=== PATIENT | female | born 1950 | race Caucasian/White ===

== ENCOUNTER 2020-09-22 15:59 | Outpatient (RCR) | payer MEDICARE, SELFPAY | END 2020-09-22 16:01 | disposition other institution (70) | LOC: ANHOT 15:59 | PROVIDERS: PCP Family Medicine | DX: I69.354 Hemiplegia and hemiparesis following cerebral infarction affecting left non-dominant side (principal) | CPT/HCPCS: 99199 ==

== ENCOUNTER 2020-10-25 12:30 | Outpatient (RCR) | payer MEDICARE, OTHER, SELFPAY ==
--- NOTE | 2020-09-26 15:46 | STOPEVAL ---
OUTPATIENT SPEECH THERAPY EVALUATION: Thank you for referring Jasmin Redding to [facility].? The patient is scheduled to be seen for therapy?2x/week for 4 weeks. Please review, sign, date and return this plan of care MYRIAM. I agree with and certify that the following plan of care is medically necessary. Referring Physician Date Attending Provider: James Peters MD *ST Outpatient Evaluation Outpatient Past Medical History Past Medical History Source of Past Medical History Patient,Family/Significant Other Neurological History Hx Cerebrovascular Accident (CVA) Yes: 09-04-20 Cardiovascular History Hx Cardiac Disorders No Significant History Respiratory History Hx Respiratory Disorders No Significant History Musculoskeletal History Hx Musculoskeletal Disorders No Significant History Hematological History Hx Hematological Disorders No Significant History Endocrine History Hx Other Endocrine Disorders Yes: parathyroid removal HEENT History Hx HEENT Disorders No Significant History Integumentary History Hx Skin Disorders No Significant History Reproductive History Hx Reproductive Disorders No Significant History Psychosocial History Hx Psychiatric Disorders No Significant History Pain History History of Any Previous or Ongoing No Significant History Instance of Pain Anesthesia History Hx Anesthesia Reactions No Significant History Evaluation Information Problem Diagnosis CVA with aphasia Onset 09-04-20 Additional Evaluation Detail 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 Subjective Information Pleasant; motivated to improve Query Text:As Reported By Patient/ Family Prior Level of Function Activity Level (Last 3 Months) Occupation retired but substitutes as an aid at school Hand Dominance Right Activity of Daily Living Ability Independent Indoor/Home Mobility Independent Community Mobility Independent Stairs Ability Independent Functional Cognition (Planning, Shopping Independent , Taking Medications) Cooking Yes Cleaning Yes Laundry Yes Shopping Yes Driving Yes Home Setting Home Type House Living Situation With Spouse Support Available Local Family Support Mobility Assistive Devices (Used Last 3 None
--- NOTE | 2020-10-25 15:03 | STOPEVAL ---
Speech Therapy Discharge: Thank you for referring Jasmin Redding to [facility].? The patient has achieved all set goals as described below. No further outpatient is warranted at this time. Please review, sign, date and return this discharge plan MYRIAM. I agree with and certify that the following plan of care is medically necessary. Referring Physician Date Attending Provider: James Peters MD * Outpatient Discharge Evaluation Language Evaluation Auditory Comprehension Response Latency functional Overall Auditory Comprehension Ability functional Additional Auditory Comprehension Improved response time with Comments responses to questions overall ; it was noted that pt hears paragraph level information, she cannot accurately recall numerical information correctly. However, pt can read numbers and recall without any notable deficit. Reading Comprehension Name Recognition Yes Numeral Comprehension (% Accuracy (0-100 100 )) Numeral Comprehension Comments single word recognition: averaged 41.5 common words in 1 minutes. Letter Comprehension (% Accuracy (0-100) 100 ) Single Word Comprehension (% Accuracy (0 100 -100)) Comprehension: 3-4 Words (% Accuracy (0- 100 100)) Comprehension: 5-7 Words (% Accuracy (0- 100 100)) Comprehension: 8-10 Words (% Accuracy (0 100 -100)) Comprehension of Complex Statements (% 100 Accuracy (0-100)) Comprehension of Simple Paragraphs (% 100 Accuracy (0-100)) Comprehension of Moderate Paragraphs (% 100 Accuracy (0-100)) Comprehension of Complex Paragraphs (% 100 Accuracy (0-100)) Comprehension of Functional Reading 90 Materials Response Latency functional Overall Reading Comprehension Ability functional Comments Related to Reading Slight delay in reading speed; Comprehension overall reading comprehension is functional Verbal Expression Confrontational Naming (% Accuracy (0- 100 100)) Confrontational Naming Comments higher level confrontational namin% accuracy now without delay; divergent naming: within functional limits. Connected Speech No Impairments Overall Verbal Expression Ability functional Speech Therapy Teaching Speech Therapy Teaching Teaching Topi
== END 2020-10-26 12:50 | disposition home or self-care (01) ==
LOC: ANHST 12:30
PROVIDERS: PCP Family Medicine; Visit Provider Family Medicine
DX: I69.320 Aphasia following cerebral infarction (principal)
CPT/HCPCS: 92507; 92523

== ENCOUNTER → 2022-02-14 07:52 | Outpatient (CLI) | payer MEDICARE, SELFPAY ==
--- NOTE | ~2022-02-14 | MR_ITS ---
EXAMINATION: MR shoulder RT wo con DATE: 02/14/2022 08:55 INDICATION: Right shoulder pain TECHNIQUE: Magnetic resonance imaging (MRI) of the right shoulder was performed without intravenous c ontrast. Sequences included axial PD-weighted FS FSE, coronal oblique PD-weighted FS FSE, coronal obl ique T2-weighted FS FSE, sagittal PD-weighted FS FSE, and sagittal T1-weighted SE. COMPARISON: None. FINDINGS: Coracoacromial arch: The acromion undersurface is flat in morphology (type I). Small anterior subacromial spur at the acro mial insertion of the normal coracoacromial ligament. Mild acromioclavicular osteoarthritis. Rotator cuff: Mild supraspinatus tendinopathy. Attenuation of the distal supraspinatus tendon with partial-thicknes s articular sided tear involving approximately one third of the tendon thickness which measures appro ximately 10 mm AP along the superior facet footplate and with 1.8 cm medial retraction of the torn ar ticular sided tendon with the tear margin positioned at the level of the apex of the humeral head. Th e infraspinatus, teres minor and subscapularis tendons are normal. Normal rotator cuff muscle bulk an d signal. Biceps tendon, glenoid labrum and glenohumeral cartilage: Long head of the biceps tendon is normal. Mild partial-thickness cartilage loss at the cephalad two t hirds of the glenoid and along the inferomedial aspect of the humeral head. Small tear at the 12:30-1 1:30 position of the superior glenoid labrum. The posterior superior to posterior labrum is diminutiv e likely related to chronic degeneration with small marginal osteophytes along the posterior rim of t he glenoid. Fluid: Increased fluid extending along the long head biceps tendon sheath which is disproportionate to the p hysiologic amount fluid in the glenohumeral joint which be consistent with mild bicipital tenosynovit is. No loose osteochondral bodies. Small amount of fluid in the subacromial/subdeltoid bursa consiste nt with mild bursitis. Bones: Normal marrow signal with no edema, fracture or abnormal marrow replacing process. IMPRESSION: 1. Mild supraspinatus tendinopathy with small mild partial-thickness articular sided tear. 2. Mild glenohumeral osteoarthritis with likely degenerative tearing of the superior to posterior gle noid labrum. 3. Mild bicipital tenosynovitis. 4. Mild subacromial/subdeltoid bursitis. Reviewed, dictated and finalized at location A. IMPRESSION: 1. Mild supraspinatus tendinopathy with small mild partial-thickness articular sided tear. 2. Mild glenohumeral osteoarthritis with likely degenerative tearing of the sup erior to posterior glenoid labrum. 3. Mild bicipital tenosynovitis. 4. Mild subacromial/subdeltoid bursitis.
== END ==
PROVIDERS: PCP Family Medicine; Visit Provider Orthopaedic Surgery
DX: M19.011 Primary osteoarthritis, right shoulder (principal); M70.61 Trochanteric bursitis, right hip
CPT/HCPCS: 73221

== ENCOUNTER 2022-05-16 10:11 | Outpatient (CLI) | payer MEDICARE, SELFPAY ==
--- NOTE | 2022-05-16 11:15 | NEURO_ITS ---
Impression: # Complains of left shoulder movement difficulties. # Normal nerve conduction study. # No Carpal Tunnel Syndrome or ulnar neuropathy. # Normal needle/EMG exam including deltoid, biceps and triceps. # Clinical correlation recommended. Nerve Conduction Studies Anti Sensory Summary Table Stim Site NR Peak (ms) P-T Amp (?V) Site1 Site2 Delta-P (ms) Dist (cm) Mauricio (m/s) Right Median Anti Sensory (2-3nd Digit) Wrist 3.2 55.2 Wrist 2-3nd Digit 3.2 14.0 44 Wrist 3.2 48.1 Wrist 2-3nd Digit 3.2 14.0 44 Right Radial Anti Sensory (Base 1st Digit) Wrist 2.4 23.9 Wrist Base 1st Digit 2.4 0.0 Right Ulnar Anti Sensory (5th Digit) Wrist 2.8 24.4 Wrist 5th Digit 2.8 14.0 50 Motor Summary Table Stim Site NR Onset (ms) O-P Amp (mV) Site1 Site2 Delta-0 (ms) Dist (cm) Mauricio (m/s) Right Median Motor (Abd Poll Brev) Wrist 3.3 5.5 Elbow Wrist 4.4 25.0 57 Elbow 7.7 3.9 Right Ulnar Motor (Abd Dig Minimi) Wrist 2.8 9.3 A Elbow Wrist 4.3 25.0 58 A Elbow 7.1 7.7 F Wave Studies NR F-Lat (ms) L-R F-Lat (ms) Right Median (Mrkrs) (Abd Poll Brev) 27.02 Right Ulnar (Mrkrs) (Abd Dig Min) 26.45 EMG Side Muscle Nerve Root Ins Act Fibs Amp Dur Recrt Comment Right 1stDorInt Ulnar C8-T1 Nml Nml Nml Nml Nml Right Ext Indicis Radial (Post Int) C7-8 Nml Nml Nml Nml Nml Right Ext Digitorum Radial (Post Int) C7-8 Nml Nml Nml Nml Nml Right BrachioRad Radial C5-6 Nml Nml Nml Nml Nml Right PronatorTeres Median C6-7 Nml Nml Nml Nml Nml Right Abd Poll Brev Median C8-T1 Nml Nml Nml Nml Nml Right Biceps Musculocut C5-6 Nml Nml Nml Nml Nml Right Triceps Radial C6-7-8 Nml Nml Nml Nml Nml Right Deltoid Axillary C5-6 Nml Nml Nml Nml Nml Right ABD Dig Min Ulnar C8-T1 Nml Nml Nml Nml Nml MTDD
== END 2022-05-16 10:12 | disposition home or self-care (01) ==
PROVIDERS: PCP Family Medicine; Visit Provider Family Medicine
DX: G56.01 Carpal tunnel syndrome, right upper limb (principal)
CPT/HCPCS: 95886; 95909

== ENCOUNTER 2022-12-10 12:29 | Emergency (ER) | payer MEDICARE, SELFPAY ==
--- NOTE | ~2022-12-10 | XR_ITS ---
XR finger 2nd RT min 2V 12/10/2022 13:04 Indication: Right second finger pain Procedure: 4 views right first finger Comparison: No prior studies Findings: There is polyarticular osteoarthritis. Osteopenia. No acute fracture, subluxation or disloc ation. No foreign bodies. Impression: 1: Mild polyarticular osteoarthritis. Reviewed, dictated and finalized at location B. Impression: 1: Mild polyarticular osteoarthritis.
[2022-12-10 12:54] VITALS: BP 155/81; PULSE 86; RESP 16; TEMP 36.6; O2SAT 99
--- NOTE | 2022-12-10 12:57 | ED.UPPEXIN ---
HPI - Extremity Injury (Upper) General Chief Complaint: Extremity Injury, Upper Stated Complaint: fall Time Seen by Provider: 12/10/22 12:57 Source: patient Mode of arrival: ambulatory Limitations: no limitations History of Present Illness HPI narrative: A 72-year-old female presents with complaint of pain and swelling to right index finger. Patient reports that she was outside in the yd walking her dog and the dog saw a turtle. states she had to pull harder on talk to hold it, foot got caught underneath of her and she fell. Patient states that she somehow been to her finger on the way down. Denies hitting her head. No LOC. reports no other pain. Decreased range of motion to right index finger due to pain but reports Does have baseline decreased range of motion due to a stroke. all systems reviewed and negative except as noted above. Related Data Home Medications Medication Instructions Recorded Confirmed vit C 250 mg-vit E 90 mg-zinc 40 1 tablet PO BID 02/03/21 12/10/22 mg-copper 1 [id number] capsule (PreserVision AREDS-2) cholecalciferol (vitamin D3) 125 125 mcg PO DAILY 08/31/21 12/10/22 mcg (5,000 unit) tablet (Vitamin D3) apixaban 5 mg tablet (Eliquis) 5 mg PO BID 02/05/22 12/10/22 amitriptyline 25 mg tablet 25 mg PO DAILY 08/13/22 12/10/22 Allergies Allergy/AdvReac Type Severity Reaction Status Date / Time codeine AdvReac Intermediate INCREASED Verified 12/10/22 13:14 HEART RATE Review of Systems Review of Systems: CONSTITUTIONAL: Denies fever, chills, or sweats. EYES: Denies visual changes, redness, or discharge. ENT: Denies rhinorrhea, congestion, sore throat, or otalgia. CARDIOVASCULAR: Denies chest pain, palpitations, or edema. RESPIRATORY: Denies cough or dyspnea. GASTROINTESTINAL: Denies abdominal pain, nausea, vomiting, or diarrhea. GENITOURINARY: Denies dysuria or hematuria. SKIN: Denies rash or itching. MUSCULOSKELETAL: Denies back pain, joint pain, or myalgia. Reports pain and swelling to right index finger. NEUROLOGIC: Denies headache, numbness, or weakness. PSYCHIATRIC: Denies anxiety or depression. All other systems reviewed are negative, except as documented in HPI. [facility] Past Medical History Medical History Barretts esophagus Basal cell carcinoma left cheek Colon polyp Esophageal hiatal hernia Hallux valgus Macular degeneration Macular pucker (~2014) Obesity (BMI 30.0-34.9) Osteopenia Osteopenia Overweight (BMI 25.0-29.9) PFO (patent foramen ovale) Postmenopausal Primary hyperparathyroidism Recurrent basal cell carcinoma Unspecified vitamin D deficiency Surgical History Surgical History H/O section History of cataract extraction (~2015) History of hernia repair (~2017) History of parathyroidectomy (~08/29/20) History of parathyroidectomy History of tonsillectomy (~1953) Family History Family History Sibling Family history of mental disorder Family history of dementia, Onset Age: 50 Family history of Alzheimer's disease Father Family history of glaucoma Family history of malignant neoplasm Mother Family history of liver disease Family history of primary malignant neoplasm of liver Other Cerebrovascular accident Family history of kidney disease Social History Social History (Updated 08/13/22 @ 15:19 by Deepti Tejeda MA) Smoking status: Never smoker Alcohol intake: current Drinks per week: 4 Substance use: never Substance use type: does not use Living arrangements: with family Gender identity (if verbalized by the patient): Female Spiritual care concerns: No Comments At time of signature, agree with nursing past medical, surgical, social and family history. There is no relevant family history pertinent to the presenting complaint.
== END 2022-12-10 13:29 | disposition home or self-care (01) ==
PROVIDERS: Emergency Provider Nurse Practitioner Family; PCP Family Medicine
DX: S63.630A Sprain of interphalangeal joint of right index finger, initial encounter (principal); W19.XXXA Unspecified fall, initial encounter; K22.70 Barrett's esophagus without dysplasia; Z85.828 Personal history of other malignant neoplasm of skin; H35.30 Unspecified macular degeneration; M85.80 Other specified disorders of bone density and structure, unspecified site; E55.9 Vitamin D deficiency, unspecified; Z90.89 Acquired absence of other organs
CPT/HCPCS: 73140; 99213; G0463

== ENCOUNTER 2023-01-02 13:44 | Outpatient (CLI) | payer MEDICARE, SELFPAY | END 2023-01-02 13:45 | disposition home or self-care (01) | PROVIDERS: PCP Family Medicine; Visit Provider Family Medicine | DX: I63.9 Cerebral infarction, unspecified (principal); E21.1 Secondary hyperparathyroidism, not elsewhere classified; M25.561 Pain in right knee | CPT/HCPCS: 73562 ==

== ENCOUNTER 2023-02-01 10:59 | Emergency (ER) | payer MEDICARE, SELFPAY ==
--- NOTE | ~2023-02-01 | XR_ITS ---
EXAMINATION: XR ribs RT 2V w CXR 2V DATE: 02/01/2023 13:24 INDICATION: Right rib pain. Fall. TECHNIQUE: Frontal and lateral views of the chest and 2 views on 3 radiographs of the right ribs were obtained. COMPARISON: Right rib radiographs 03/18/2015 FINDINGS: CHEST TWO VIEWS: There is no pneumonia, pleural effusion, or pneumothorax. The heart size is normal. There is a moderate-sized hiatal hernia. There is an electronic implant in left anterior chest wall. RIGHT RIBS: There is no rib fracture. IMPRESSION: 1. No rib fracture. 2. Moderate-sized hiatal hernia. Reviewed, dictated and finalized at location A.
--- NOTE | ~2023-02-01 | CT_ITS ---
EXAMINATION: CT brain wo con DATE: 02/01/2023 12:09 INDICATION: Head injury. TECHNIQUE: Computed tomography (CT) of the head was performed without intravenous contrast. The mA wa s adjusted according to patient size. Iterative reconstruction technique was employed. The dose-lengt h product was 681.00 mGy-cm. COMPARISON: None FINDINGS: There is an old infarct in the left thalamus. There is an old infarct in the left temporal occipital region. There is a small old infarct in right cerebellum. There is an old infarct in right frontal lobe. There is no intracranial hemorrhage, acute infarction, or abnormal intracranial mass le jaime. There is mild ex vacuo dilatation of left lateral ventricle. There is mild mucosal thickening i n the paranasal sinuses. There are likely changes of ocular lens replacement surgeries. The mastoid a ir cells are normal. There is right posterior scalp soft tissue swelling. IMPRESSION: 1. Old infarcts in the brain. Reviewed, dictated and finalized at location A.
--- NOTE | ~2023-02-01 | CT_ITS ---
EXAMINATION: CT cervical spine wo con DATE: 02/01/2023 12:09 INDICATION: Head injury. TECHNIQUE: Computed tomography (CT) of the cervical spine was performed without intravenous contrast. Automated exposure control and iterative reconstruction technique were employed. The dose-length pro duct was 177.60 mGy-cm. COMPARISON: None FINDINGS: There is 2 mm of anterolisthesis of C3 on C4 and C7 on T1. Vertebral body heights are may l. There is mildly decreased disc height at C2-C3 and C3-C4 and severely decreased disc height from C 4-C5 through C6-C7. The following disc levels are specifically discussed: C2-C3: There is mild right uncovertebral joint osteoarthritis. There is mild bilateral facet joint os teoarthritis. There is no neural foraminal stenosis. There is no central canal stenosis. C3-C4: There is severe right and moderate left uncovertebral joint osteoarthritis. There is severe bi lateral facet joint osteoarthritis. There is mild bilateral neural foraminal stenosis. There is mild central canal stenosis. C4-C5: There is severe bilateral uncovertebral joint osteoarthritis. There is moderate right and mild left facet joint osteoarthritis. There is mild bilateral neural foraminal stenosis. There is mild ce ntral canal stenosis. C5-C6: There is severe bilateral uncovertebral joint osteoarthritis. There is mild bilateral facet quinn int osteoarthritis. There is mild bilateral neural foraminal stenosis. There is mild central canal st enosis. C6-C7: There is severe bilateral uncovertebral joint osteoarthritis. There is moderate bilateral face t joint osteoarthritis. There is mild left neural foraminal stenosis. There is mild central canal wilbert nosis. C7-T1: There is no uncovertebral joint osteoarthritis. There is severe bilateral facet joint osteoart hritis. There is mild bilateral neural foraminal stenosis. There is no central canal stenosis. IMPRESSION: 1. No fracture. 2. Severe cervical spondylosis. Reviewed, dictated and finalized at location A.
--- NOTE | ~2023-02-01 | XR_ITS ---
EXAMINATION: XR shoulder RT min 2V DATE: 02/01/2023 13:25 INDICATION: Right shoulder injury. TECHNIQUE: 4 views of right shoulder were obtained. COMPARISON: Right shoulder radiographs 02/05/2022 FINDINGS: Bone alignment is normal. No fracture. There is mild osteoarthritis of glenohumeral joint a nd moderate osteoarthritis of acromioclavicular joint. IMPRESSION: 1. Polyarticular osteoarthritis. Reviewed, dictated and finalized at location A.
[2023-02-01 11:18] VITALS: BP 136/76; PULSE 89; RESP 18; TEMP 36.8; O2SAT 97
--- NOTE | 2023-02-01 13:08 | ED.FALL ---
HPI - Fall General Chief Complaint: Fall Stated Complaint: Fall Time Seen by Provider: 02/01/23 11:30 Source: patient Mode of arrival: ambulatory Limitations: no limitations History of Present Illness HPI Narrative: Patient is a 72-year-old female who presents to the ED with report of a fall. Patient reports she was walking with her on the bike trail today when she thinks her toe got caught on something causing her to fall. She was holding onto her at that time but fell backwards, hitting her posterior head on the ground. She sustained a contusion to her posterior scalp, denied LOC. She denied any prodromal symptoms prior to the fall. Denies any dizziness, lightheadedness, vision changes, nausea, vomiting after the fall. reports patient has fallen 4 times in the last few weeks. Patient has a history of CVA 2.5 years ago and does have some gait instability. 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 Denies any new weakness, numbness. Denies chest pain, shortness of breath. She does complain of pain to her right shoulder and right ribs from a recent fall. She has bruising to her arm. Patient is on Eliquis due to history of blood clots. She has history of CVA and PFO. Related Data Home Medications Medication Instructions Recorded Confirmed vit C 250 mg-vit E 90 mg-zinc 40 1 tablet PO BID 02/03/21 01/07/23 mg-copper 1 [id number] capsule (PreserVision AREDS-2) cholecalciferol (vitamin D3) 125 125 mcg PO DAILY 08/31/21 01/07/23 mcg (5,000 unit) tablet (Vitamin D3) apixaban 5 mg tablet (Eliquis) 5 mg PO BID 02/05/22 01/07/23 amitriptyline 25 mg tablet 25 mg PO DAILY 08/13/22 01/07/23 Allergies Allergy/AdvReac Type Severity Reaction Status Date / Time codeine AdvReac Intermediate INCREASED Verified 01/07/23 09:05 HEART RATE Review of Systems Review of Systems: CONSTITUTIONAL: Denies fever, chills, or sweats. EYES: Denies visual changes. CARDIOVASCULAR: Denies chest pain. RESPIRATORY: Denies dyspnea. GASTROINTESTINAL: Denies abdominal pain, nausea, vomiting. MUSCULOSKELETAL: See HPI. NEUROLOGIC: See HPI. All systems reviewed & are unremarkable except as noted in HPI and below PMFSH Past Medical History Medical History Barretts esophagus Basal cell carcinoma left cheek Colon polyp CVA (cerebral vascular accident) Esophageal hiatal hernia Hallux valgus Macular degeneration Macular pucker (~2014) Obesity (BMI 30.0-34.9) Osteopenia Osteopenia Overweight (BMI 25.0-29.9) PFO (patent foramen ovale) Postmenopausal Primary hyperparathyroidism Recurrent basal cell carcinoma Unspecified vitamin D deficiency Surgical History Surgical History H/O section History of cataract extraction (~2015) History of hernia repair (~2017) History of parathyroidectomy (~08/29/20) History of parathyroidectomy History of tonsillectomy (~1953) Family History Family History Sibling Family history of mental disorder Family history of dementia, Onset Age: 50 Family history of Alzheimer's disease Father Family history of glaucoma Family history of malignant neoplasm Mother Family history of liver disease Family history of primary malignant neoplasm of liver Other Cerebrovascular accident Family history of kidney disease Social History Social History Smoking status: Never smoker Alcohol intake: current Drinks per week: 4 Substance use: never Substance use type: does not use Living arrangements: with family Gender identity (if verbalized by the patient): Female Spiritual care concerns: No Exam Narrative: GENERAL: Well appearing, well-nourished, non-toxic, in no acute distress. HEAD
== END 2023-02-01 14:18 | disposition home or self-care (01) ==
PROVIDERS: Emergency Provider Physician Assistant; PCP Family Medicine
DX: S09.90XA Unspecified injury of head, initial encounter (principal); S46.911A Strain of unspecified muscle, fascia and tendon at shoulder and upper arm level, right arm, initial encounter; H35.30 Unspecified macular degeneration; H35.379 Puckering of macula, unspecified eye; M85.80 Other specified disorders of bone density and structure, unspecified site; E66.3 Overweight; Z68.25 Body mass index [BMI] 25.0-25.9, adult; E21.3 Hyperparathyroidism, unspecified; E55.9 Vitamin D deficiency, unspecified; K22.70 Barrett's esophagus without dysplasia; Q21.12 Patent foramen ovale; Z85.828 Personal history of other malignant neoplasm of skin; Z86.73 Personal history of transient ischemic attack (TIA), and cerebral infarction without residual deficits; Z86.010 Personal history of colon polyps; Z98.49 Cataract extraction status, unspecified eye; E89.2 Postprocedural hypoparathyroidism; Z79.01 Long term (current) use of anticoagulants; M47.812 Spondylosis without myelopathy or radiculopathy, cervical region; K44.9 Diaphragmatic hernia without obstruction or gangrene; M19.011 Primary osteoarthritis, right shoulder; W01.0XXA Fall on same level from slipping, tripping and stumbling without subsequent striking against object, initial encounter
CPT/HCPCS: 70450; 71046; 71100; 72125; 73030; 99284; L0140

== ENCOUNTER 2023-07-03 00:49 | Day surgery (SDC) | payer MEDICARE, SELFPAY ==
[2023-06-26 14:31] VITALS: BMI 27.5
--- NOTE | 2023-07-01 10:15 | SUR.PREOP ---
Patient called regarding upcoming procedure. Reviewed preop instructions, appointment times, and procedure prep.
--- NOTE | 2023-07-02 18:34 | PM.HPGS ---
History of Present Illness History of Present Illness Consent: Risks, benefits, and alternatives have been discussed and questions answered. Patient agrees to proceed with procedure. Chief complaint: other fecal abnormalities Narrative: Jasmin Redding is a 72 year old female referred for colon cancer screening. A Cologuard test was positive. Her last colonoscopy which was 5 years ago revealed 2 polyps, 1 of which was a tubular adenoma. Review of Systems Review of Systems: All systems reviewed & are unremarkable except as noted in HPI and below PMFSH Past Medical History Medical History Barretts esophagus Basal cell carcinoma left cheek Colon polyp CVA (cerebral vascular accident) Esophageal hiatal hernia Hallux valgus Macular degeneration Macular pucker (~2014) Obesity (BMI 30.0-34.9) Osteopenia Osteopenia Overweight (BMI 25.0-29.9) PFO (patent foramen ovale) Postmenopausal Primary hyperparathyroidism Recurrent basal cell carcinoma Unspecified vitamin D deficiency Surgical History Surgical History H/O section History of cataract extraction (~2015) History of hernia repair (~2017) History of parathyroidectomy (~08/29/20) History of parathyroidectomy History of tonsillectomy (~1953) Family History Family History Sibling Family history of mental disorder Family history of dementia, Onset Age: 50 Family history of Alzheimer's disease Father Family history of glaucoma Family history of malignant neoplasm Mother Family history of liver disease Family history of primary malignant neoplasm of liver Other Cerebrovascular accident Family history of kidney disease Social History Social History Smoking status: Never smoker Alcohol intake: current Drinks per week: 4 Substance use: never Substance use type: does not use Lack of Transportation: No Lack of Food: Never True Current Housing: I Have Housing Concerned About Future Housing: No Difficulty Paying Gas/Electric Bills: No Difficulty Paying for Meds: No Currently Unemployed: No Education: High School Diploma/GED Difficulty w/ Childcare or Family Care: No Living arrangements: with family Gender identity (if verbalized by the patient): Female Spiritual care concerns: No Meds Home Medications and Allergies Home Medications Medication Instructions Recorded Confirmed Type vit C 250 mg-vit E 90 mg-zinc 40 1 tablet PO BID 02/03/21 07/03/23 History mg-copper 1 [id number] capsule (PreserVision AREDS-2) cholecalciferol (vitamin D3) 125 125 mcg PO DAILY 08/31/21 07/03/23 History mcg (5,000 unit) tablet (Vitamin D3) apixaban 5 mg tablet (Eliquis) 5 mg PO BID 02/05/22 06/26/23 History atorvastatin 40 mg tablet 40 mg PO DAILY #90 tabs 07/13/22 07/03/23 Rx lisinopril 10 mg tablet 10 mg PO DAILY #90 tabs 05/08/23 07/03/23 Rx amitriptyline 25 mg tablet 12.5 mg PO HS 06/26/23 07/03/23 History Allergies Allergy/AdvReac Type Severity Reaction Status Date / Time alteplase Allergy Severe Swelling Verified 07/03/23 11:51 of Lip/Tongue/Throat codeine Allergy Intermediate INCREASED Verified 07/03/23 11:51 HEART RATE Exam Const: General: alert Orientation/consciousness: patient oriented x3 Resp: Auscultation: clear to auscultation bilaterally Cardio: Rhythm: regular rhythm GI: GI Palp: Yes Soft to palpation and No Tenderness to palpation present (GI) Neuro: General: patient oriented x3 Assessment and Plan Assessment and plan (1) Positive colorectal cancer screening using Cologuard test: Code(s): R19.5 - Other fecal abnormalities Status: Acute Assessment and Plan: Colonoscopy with possible biopsy or polypectomy or cautery or
[2023-07-03 11:55] VITALS: BP 144/73; PULSE 72; RESP 20; TEMP 36; O2SAT 100; BMI 27.3
[2023-07-03] MEDS: LACTATED RINGERS 1,000 ML 150 ML IV CONT (11:57)
--- NOTE | 2023-07-03 12:11 | WPDANESEPPF ---
Anes - Initial Pre Proc Eval Procedure: Operation Date: 07/03/23 12:30 Proposed Procedures p Colonoscopy - Dimas Hernandes MD Date/Time: 07/03/23 12:11 Surgeon: Dimas Hernandes MD Pre Op Diagnosis: other fecal abnormalities Patient Data Age: 72 Gender: F Height: 1.6 m Weight: 69.9 kg Last Vital Signs Temp 96.8 F L 07/03/23 11:55 Pulse 72 07/03/23 11:55 Resp 20 07/03/23 11:55 BP 144/73 H 07/03/23 11:55 Pulse Ox 100 07/03/23 11:55 Allergies Allergy/AdvReac Type Severity Reaction Status Date / Time alteplase Allergy Severe Swelling Verified 07/03/23 11:51 of Lip/Tongue/Throat codeine Allergy Intermediate INCREASED Verified 07/03/23 11:51 HEART RATE Home Medications Medication Instructions Recorded Confirmed Type vit C 250 mg-vit E 90 mg-zinc 40 1 tablet PO BID 02/03/21 07/03/23 History mg-copper 1 [id number] capsule (PreserVision AREDS-2) cholecalciferol (vitamin D3) 125 125 mcg PO DAILY 08/31/21 07/03/23 History mcg (5,000 unit) tablet (Vitamin D3) apixaban 5 mg tablet (Eliquis) 5 mg PO BID 02/05/22 06/26/23 History atorvastatin 40 mg tablet 40 mg PO DAILY #90 tabs 07/13/22 07/03/23 Rx lisinopril 10 mg tablet 10 mg PO DAILY #90 tabs 05/08/23 07/03/23 Rx amitriptyline 25 mg tablet 12.5 mg PO HS 06/26/23 07/03/23 History Patient hx anesthesia problems: none Family hx anesthesia problems: none Results Review: All pre-operative results and documents have been reviewed as part of the pre-operative evaluation. [facility] Past Medical History Medical History Barretts esophagus Basal cell carcinoma left cheek Colon polyp CVA (cerebral vascular accident) Esophageal hiatal hernia Hallux valgus Macular degeneration Macular pucker (~2014) Obesity (BMI 30.0-34.9) Osteopenia Osteopenia Overweight (BMI 25.0-29.9) PFO (patent foramen ovale) Postmenopausal Primary hyperparathyroidism Recurrent basal cell carcinoma Unspecified vitamin D deficiency Surgical History Surgical History H/O section History of cataract extraction (~2015) History of hernia repair (~2017) History of parathyroidectomy (~08/29/20) History of parathyroidectomy History of tonsillectomy (~195) Family History Family History Sibling Family history of mental disorder Family history of dementia, Onset Age: 50 Family history of Alzheimer's disease Father Family history of glaucoma Family history of malignant neoplasm Mother Family history of liver disease Family history of primary malignant neoplasm of liver Other Cerebrovascular accident Family history of kidney disease Social History Social History Smoking status: Never smoker Alcohol intake: current Drinks per week: 4 Substance use: never Substance use type: does not use Lack of Transportation: No Lack of Food: Never True Current Housing: I Have Housing Concerned About Future Housing: No Difficulty Paying Gas/Electric Bills: No Difficulty Paying for Meds: No Currently Unemployed: No Education: High School Diploma/GED Difficulty w/ Childcare or Family Care: No Living arrangements: with family Gender identity (if verbalized by the patient): Female Spiritual care concerns: No Anes - Eval Final PreProcedure Day of Procedure 07/03/23 12:11 Patient weight: normal Heart: regular rate and rhythm Lungs: clear to auscultation Airway: Mallampati scale class II Neurological: alert and oriented Last oral intake: >/= 8 hours ASA classification: III Emergent: no Anesthetic plan: proceed Anesthesia type and monitoring: general GIVS and standard monitoring Results Review: All pre-operative results and documents have been reviewed as part of the pre-oper
[2023-07-03 12:53] VITALS: BP 134/76; PULSE 77; RESP 19; O2SAT 99
[2023-07-03 13:03] VITALS: BP 143/85; PULSE 79; RESP 22; O2SAT 100
[2023-07-03 13:13] VITALS: BP 145/90; PULSE 79; RESP 22; O2SAT 100
== END 2023-07-03 13:26 | disposition home or self-care (01) ==
PROVIDERS: PCP Family Medicine; Visit Provider Internal Medicine Gastroenterology
PROC: 0DJD8ZZ Inspection of Lower Intestinal Tract, Via Natural or Artificial Opening Endoscopic (ICD-10-PCS; CPT 45378; principal; 2023-07-03 12:30)
DX: Z12.11 Encounter for screening for malignant neoplasm of colon (principal); K57.30 Diverticulosis of large intestine without perforation or abscess without bleeding; R19.5 Other fecal abnormalities; Z86.010 Personal history of colon polyps; E55.9 Vitamin D deficiency, unspecified; Z86.73 Personal history of transient ischemic attack (TIA), and cerebral infarction without residual deficits
CPT/HCPCS: G0105; J2704; J7120

== ENCOUNTER 2023-11-25 09:00 | Outpatient (RCR) | payer MEDICARE, SELFPAY ==
--- NOTE | 2023-10-22 11:06 | OTOPEVAL1 ---
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 Reports difficulties with writing with the right hand. Assessment OT Clinical Summary Patient referred to OT with a decline in right UE use following a CVA 3 years ago. She presents with intact functional strength, but residual deficit with functional coordination. Skilled OT indicated to facilitate improved functional coordination to improve handwriting and gross motor skills, such as pouring, chopping, and carrying tasks with the right UE. Plan of Care Interventions Therapeutic Exercise,Neuro Re-education, Therapeutic Activities OT Services Indicated Yes Treatment Frequency and 1x/week for 5 visits Duration These treatments will address the objective and functional deficits as defined above. The patient will be advanced safely and appropriately in order for the patient to progress towards his/her prior level of function. Additional exercises will be introduced and as well as a comprehensive home exercise program upon discharge, if needed, ?to ensure carryover of functional gains achieved in the clinic. This treatment plan has been reviewed and agreement upon by the patient.
--- NOTE | 2023-10-22 11:07 | OPREHPOC ---
Outpatient Therapy Plan of Care This is a Multidisciplinary Plan of Care that may contain components documented by all disciplines (PT, OT, and ST.) OT Problem 1 OT Problem #1 Knowledge Deficit OT Goal 1 Goal 1. Patient to be independent with instructed materials. Target Visit 6 OT Problem 2 OT Problem #2 Impaired Coordination OT Goal 1 Goal 1. Patient to be able to complete the 9-hole peg test with the right hand in 32 seconds or less. 2. Patient to report improved handwriting skills. Target Visit 6 OT Problem 3 OT Problem #3 Impaired Strength OT Goal 1 Goal 1. 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 Target Visit 6
--- NOTE | 2023-11-25 09:43 | OTOPDC ---
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 She feels like these two areas have improved some, but it depends on the day . She reports she has no functional limitations, just some tasks are harder than others, but she tries to use her hand for anything she can. She also notes she is starting to get back into painting. Assessment OT Clinical Summary Patient referred to OT with a decline in right UE use following a CVA 3 years ago. She presents today for reassessment after 5 therapy sessions. Overall her gross strength is WFL. Chha remained unchanged at 44 lbs. Fine motor coordination, as measured by the 9-hole peg test, improved by 3 seconds. She is independent with ADL modifications and adaptive equipment to increase her independence. No further skilled OT indicated at this time. D/C with patient independent with HEP. Plan of Care OT Services Indicated No
== END 2023-11-25 10:37 | disposition home or self-care (01) ==
LOC: ANHOT 09:00
PROVIDERS: PCP Family Medicine
DX: R25.1 Tremor, unspecified (principal); R27.0 Ataxia, unspecified; I67.9 Cerebrovascular disease, unspecified
CPT/HCPCS: 97110; 97165; 97530

== ENCOUNTER 2024-03-08 11:43 | Emergency (ER) | payer MEDICARE, SELFPAY ==
--- NOTE | 2024-03-08 13:48 | PC.NURSE ---
pt left with family member, no longer wishing to wait
== END 2024-03-08 14:04 | disposition left against medical advice (07) ==
LOC: ANHED 13:51
PROVIDERS: PCP Family Medicine
DX: M54.9 Dorsalgia, unspecified (principal)
CPT/HCPCS: 99199

== ENCOUNTER 2024-03-08 13:50 | Emergency (ER) | payer MEDICARE, SELFPAY ==
--- NOTE | 2024-03-08 13:54 | ED.GENADULT ---
HPI - General Adult General Chief complaint: Back Pain/Injury Stated complaint: Back Pain Time Seen by Provider: 03/08/24 13:54 Source: patient Mode of arrival: ambulatory Limitations: no limitations History of Present Illness HPI narrative: 73-year-old female patient presents to the [facility] with complaints of left-sided low back pain x3 days. Denies any trauma or falls. Patient denies any urinary symptoms. Denies fevers, body aches or chills. Patient states she was at [facility] today and sat there for 2 hours and decided to leave to come here. Patient states she has joined a while the last 2 weeks and has been going to the pool and stretching but denies any other new activity. Patient denies taking any medication for her pain prior to arrival. Related Data Home Medications Medication Instructions Recorded Confirmed vit C 250 mg-vit E 90 mg-zinc 40 1 tablet PO BID 02/03/21 03/08/24 mg-copper 1 [id number]-subbls-tqbhst capsule (PreserVision AREDS-2) cholecalciferol (vitamin D3) 125 125 mcg PO WEEKLY 08/31/21 03/08/24 mcg (5,000 unit) tablet (Vitamin D3) apixaban 5 mg tablet (Eliquis) 5 mg PO BID 02/05/22 03/08/24 amitriptyline 25 mg tablet 12.5 mg PO HS 06/26/23 03/08/24 propranolol 20 mg tablet 20 mg PO DAILY 03/08/24 03/08/24 Allergies Allergy/AdvReac Type Severity Reaction Status Date / Time alteplase Allergy Severe Swelling Verified 03/08/24 13:52 of Lip/Tongue/Throat codeine AdvReac Intermediate INCREASED Verified 03/08/24 13:52 HEART RATE Review of Systems Review of Systems: CONSTITUTIONAL: Denies fever, chills, or sweats. EYES: Denies visual changes, redness, or discharge. ENT: Denies rhinorrhea, congestion, sore throat, or otalgia. CARDIOVASCULAR: Denies chest pain, palpitations, or edema. RESPIRATORY: Denies cough or dyspnea. GASTROINTESTINAL: Denies abdominal pain, nausea, vomiting, or diarrhea. GENITOURINARY: Denies dysuria or hematuria. SKIN: Denies rash or itching. MUSCULOSKELETAL: Positive left low back pain, denies joint pain, or myalgia. NEUROLOGIC: Denies headache, numbness, or weakness. PSYCHIATRIC: Denies anxiety or depression. [facility] Past Medical History Medical History Barretts esophagus Basal cell carcinoma left cheek Colon polyp CVA (cerebral vascular accident) Esophageal hiatal hernia Hallux valgus Macular degeneration Macular pucker (~2014) Obesity (BMI 30.0-34.9) Osteopenia Osteopenia Overweight (BMI 25.0-29.9) PFO (patent foramen ovale) Postmenopausal Primary hyperparathyroidism Recurrent basal cell carcinoma Unspecified vitamin D deficiency Surgical History Surgical History H/O section History of cataract extraction (~2015) History of hernia repair (~2017) History of parathyroidectomy (~08/29/20) History of parathyroidectomy History of tonsillectomy (~1953) Family History Family History Sibling Family history of mental disorder Family history of dementia, Onset Age: 50 Family history of Alzheimer's disease Father Family history of glaucoma Family history of malignant neoplasm Mother Family history of liver disease Family history of primary malignant neoplasm of liver Other Cerebrovascular accident Family history of kidney disease Social History Social History Smoking status: Never smoker Alcohol intake: current Drinks per week: 4 Substance use: never Substance use type: does not use Lack of Transportation: No Lack of Food: Never True Current Housing: I Have Housing Concerned About Future Housing: No Difficulty Paying Gas/Electric Bills: No Difficulty Paying for Meds: No Currently Unemployed: No Education: High School Diploma/GED Difficulty w/ Childcare or Fami
[2024-03-08 14:04] VITALS: BP 125/69; PULSE 63; RESP 16; TEMP 36.3; O2SAT 100
[2024-03-08 14:21] LABS: EDUAAPPEAR Clear; EDUABILI Negative; EDUABLOOD Negative; EDUACOLOR1 Yellow; EDUAGLUCOSE Negative; EDUAKETONE Negative; EDUALEUKO 1+; EDUANITRATE Negative; EDUAPROTEIN Negative; EDUAUROBILI 0.2
== END 2024-03-08 14:29 | disposition home or self-care (01) ==
PROVIDERS: Emergency Provider Nurse Practitioner Family; PCP Family Medicine
DX: M54.42 Lumbago with sciatica, left side (principal); K22.70 Barrett's esophagus without dysplasia; H35.30 Unspecified macular degeneration; E66.9 Obesity, unspecified; Z68.28 Body mass index [BMI] 28.0-28.9, adult; M85.80 Other specified disorders of bone density and structure, unspecified site; E21.0 Primary hyperparathyroidism; Z85.828 Personal history of other malignant neoplasm of skin; E55.9 Vitamin D deficiency, unspecified; Z90.89 Acquired absence of other organs
CPT/HCPCS: 81003; 99213; G0463

== ENCOUNTER 2024-11-02 00:25 | Day surgery (SDC) | payer MEDICARE, SELFPAY ==
[2024-10-23 15:17] VITALS: BMI 28.5
--- NOTE | 2024-10-23 15:35 | PC.NURSE ---
Report to the Outpatient Waiting Room, entrance under the green pavilion located off [facility], at time ___11:00AM____ on date ___11/02/24____. Planned Procedure Time: __1:00PM .? Time changes happen often and if your time is changed the preop area will call you the afternoon before. - You and your visitor will be asked to self-screen and do not enter if you have any COVID symptoms. Please call surgeon if you need to reschedule. - A mask is optional within the hospital at this time. Patients may have clear liquids (water, carbonated beverages, clear teas, apple juice) until 3 hours prior to surgery (10:00AM) with a maximum of 20 ounces. - No food from midnight until time of surgery and no smoking, or chewing tobacco (or any form of nicotine). No chewing gum, candy or mints. Take only the following medications with a SIP of water on the morning of surgery: NONE DO NOT STOP ANY OF YOUR OTHER PRESCRIPTION MEDICATIONS PRIOR TO SURGERY EXCEPT THE FOLLOWING Hold all vitamins and supplements for 3 days per anesthesiologist.-LAST DOSE 10/29/24 Medications to discontinue per physician ____HOLD ELIQUIS 2 DAYS PRE-OP PER DR WILLIS Date to take last dose 10/30/24 Please no make-up, nail serbian, hairspray, perfume, deodorant, or body powder the day of surgery.? No jewelry (including any body piercings) or valuables the day of surgery, leave them at home.? Please take a shower or bath the night before, or the morning of, surgery with an antibacterial soap.? Wear comfortable, loose fitting clothing.? Children are encouraged to wear pajamas. - Jewelry must be removed prior to entering the operating room.? Rings and piercings that are not removed may be cut off. - The hospital will not accept responsibility for valuables.? - Please leave all valuables, including medications, at home the day of surgery. If you are going home after surgery, a licensed driver wheelchair must drive you home.? - NO public transportation without another adult if you receive anesthesia. - We recommend that an adult stay with you for 24 hours following discharge. - We also recommend that you do not drive, make important decision, drink alcoholic beverages, or take any drugs that were not prescribed by your health care provider for at least 24 hours after your discharge time. Follow any additional instructions given to you from your surgeon. Telephone instructions given to ___PATIENT and asked if any additional questions and then verbalized understanding. Patient advised to call surgeon office or pre surgery nurse liaison [phone] if any additional questions.
--- OUTSIDE RECORDS SUMMARY | 2024-11-02 00:30 | XMS_ITS | Referral Summary ---
Author Organization [facility] [address] Address [address] [place] [address] Care Team Providers Care Customer Advocate Name Role Phone James Peters MD Primary Care Provider [phone] Allergies Active Allergy Reactions Criticality Noted Date Comments Alteplase Angioedema High 09/04/2020 Medications lisinopriL (PRINIVIL,ZESTR [place]) 10 mg tabletIndicatio ns:hypertension Take 10 mg by mouth every morning 10/28/2017 Active omeprazole (PriLOSEC) 40 mg capsule Take 40 mg by mouth every morning 11/20/2019 Active cholecalciferol , vitamin D3, (VITAMIN D3 ORAL)Indication s:on Take 50,000 unit marking on U-100 syringe by mouth every morning Active vit A/vit C/vit E/zinc/copper (ICAPS AREDS ORAL) Take by mouth every morning Active oxyCODONE (ROXICODONE) 5 mg immediate release tabletIndicatio ns:Pain Take 1 tablet (5 mg total) by mouth every 4 (four) hours as needed (breakthrough pain despite tylenol) 8 tablet 08/29/2020 Active acetaminophen 500 mg capsuleIndicati ons:Pain Take 2 capsules (1,000 mg total) by mouth every 6 (six) hours as needed for pain 60 tablet 08/29/2020 Active amLODIPine (NORVASC) 10 mg tablet Take 10 mg by mouth daily 09/07/2020 Active apixaban (ELIQUIS) 5 mg tablet Take 5 mg by mouth 2 (two) times a day 09/07/2020 Active atorvastatin (LIPITOR) 40 mg tablet Take 40 mg by mouth nightly 09/06/2020 Active Active Problems Problem Noted Date Diagnosed Date Hyperparathyroidism 08/29/2020 Social History Tobacco Use Types Packs/Day Years Used Date Smoking Tobacco: Never Smokeless Tobacco: Never Alcohol Use Standard Drinks/Week Comments Yes 1 (1 standard drink = 0.6 oz pur e alcohol) Comments No Sex and Gender Information Value Date Recorded Sex Assigned at Not on file Legal Sex Female 11:40 PM [employer] Gender Identity Not on file Sexual Orientation Not on file Last Filed Vital Signs Vital Sign Reading Time Taken Comments Blood Pressure 159/94 03/15/2021 10:49 AM CDT Pulse 94 03/15/2021 10:49 AM CDT Temperature 36.5 C (97.7 F) 03/15/2021 10:49 AM CDT Respiratory Rate 18 08/29/2020 2:00 PM [employer] Oxygen Saturation 100% 03/15/2021 10:49 AM CDT Inhaled Oxygen Concentration - - Weight 70 kg (154 lb 6.4 oz) 03/15/2021 10:49 AM CDT Height 162.6 cm (5' 4.02 ) 09/14/2020 10:[address] Body Mass Index 26.49 09/14/2020 10:54 AM [employer] Plan of Treatment Not on file Procedures Procedure Name Priority Date/Time Associated Diagnosis Comments DIAGNOSTIC MAMMOGRAM BILATERAL W VINH Schedule Routine, Read Routine (OP Routine) 03/05/2024 9:00 AM CDT Mass of right breast, unspecified quadrant Mass of left breast, unspecified quadrant from Last 3 Months or Most Recently Relevant to Health Maintenance Results * Diagnostic Mammogram Bilateral W Vinh (03/05/2024 9:00 AM CDT) Anatomical Region Laterality Modality Breast Bilateral Mammography 03/05/2024 9:39 AM CDT Impressions 03/05/2024 9:40 AM CDT 1. A 0.5 cm hypoechoic lesion within the skin correlates with the area of palpable abnormality and is benign. This may represent a sebaceous or epidermoid cyst, although no definite tract to the skin surface is visualized. 2. No evidence of malignancy in either breast. OVERALL FINAL ASSESSMENT: BI-RADS Category 2: Benign. RECOMMENDATION: 1. Annual screening mammography is recommended. 2. Clinical follow-up is recommended. Dr. Bobby discussed the above findings and recommendations with the patient, who expressed her understanding of the management plan. Dictated by: Fermín Bobby M.D. The radiology attending physician has personally reviewed this study, and had reviewed and/or edited this written report and agrees with it. Electronically signed by: Gabi Jain M.D. Narrative 03/05/2024 9:40 AM CDT EXAMINATION: BILATERAL DIGITAL DIAGNOSTIC MAMMOGRAM INCLUDING CAD AND BILATERAL DIGITAL BREAST TOMOSYNTHESIS; LEFT BREAST SONOGRAM HISTORY: 73-year-old woman presents with palpable left breast abnormality for approximately 2-4 weeks. COMPARISON: Multiple prior mammograms which date back to 06/08/2014, the most recent on 09/28/2021. TECHNIQUE: Full field digital mammographic views of BOTH breasts were performed, including computer aided detection (CAD) and BILATERAL digital breast tomosynthesis (DBT). Directed ultrasound evaluation of the LEFT breast was performed by a trained business center attendant and by Dr. Bobby. BREAST PARENCHYMAL COMPOSITION: There are scattered areas of fibroglandular density. MAMMOGRAM FINDINGS: A triangular marker projects over the left upper outer quadrant anterior depth to indicate the area of palpable abnormality. There is no focal asymmetry, mass, or suspicious calcification subjacent to this marker. There is a loop recorder in the left breast. No suspicious mass, distortion, or calcification within either breast. SONOGRAM FINDINGS: Targeted ultrasound was performed of the LEFT breast at the 1 o'clock position, 3 cm from the nipple abdomen demonstrates a 0.5 x 0.4 x 0.1 cm hypoechoic lesion without internal vascularity or posterior acoustic features in the skin that correlates with the area of palpable abnormality may represent a sebaceous or epidermoid cyst and is benign. Procedure Note Gabi Jain MD - 03/05/2024 EXAMINATION: BILATERAL DIGITAL DIAGNOSTIC MAMMOGRAM INCLUDING CAD AND BILATERAL DIGITAL BREAST TOMOSYNTHESIS; LEFT BREAST SONOGRAM HISTORY: 73-year-old woman presents with palpable left breast abnormality for approximately 2-4 weeks. COMPARISON: Multiple prior mammograms which date back to 06/08/2014, the most recent on 09/28/2021. TECHNIQUE: Full field digital mammographic views of BOTH breasts were performed, including computer aided detection (CAD) and BILATERAL digital breast tomosynthesis (DBT). Directed ultrasound evaluation of the LEFT breast was performed by a trained business center attendant and by Dr. Bobby. BREAST PARENCHYMAL COMPOSITION: There are scattered areas of fibroglandular density. MAMMOGRAM FINDINGS: A triangular marker projects over the left upper outer quadrant anterior depth to indicate the area of palpable abnormality. There is no focal asymmetry, mass, or suspicious calcification subjacent to this marker. There is a loop recorder in the left breast. No suspicious mass, distortion, or calcification within either breast. SONOGRAM FINDINGS: Targeted ultrasound was performed of the LEFT breast at the 1 o'clock position, 3 cm from the nipple abdomen demonstrates a 0.5 x 0.4 x 0.1 cm hypoechoic lesion without internal vascularity or posterior acoustic features in the skin that correlates with the area of palpable abnormality may represent a sebaceous or epidermoid cyst and is benign. IMPRESSION: 1. A 0.5 cm hypoechoic lesion within the skin correlates with the area of palpable abnormality and is benign. This may represent a sebaceous or epidermoid cyst, although no definite tract to the skin surface is visualized. 2. No evidence of malignancy in either breast. OVERALL FINAL ASSESSMENT: BI-RADS Category 2: Benign. RECOMMENDATION: 1. Annual screening mammography is recommended. 2. Clinical follow-up is recommended. Dr. Bobby discussed the above findings and recommendations with the patient, who expressed her understanding of the management plan. Dictated by: Fermín Bobby M.D. The radiology attending physician has personally reviewed this study, and had reviewed and/or edited this written report and agrees with it. Electronically signed by: Gabi Jain M.D. [place] NP IMG MAMMO PROCEDURES Jacki l Result from Last 3 Months or Most Recently Relevant to Health Maintenance Insurance MEDICARE [employer] MEDICARE [place] [address] MEDICARE [employer] CLAIMS OFFICE MEDICARE [facility] Address: [address] [place] [id number] [employer] CLAIMS OFFICE Advance Directives For more information, please contact: [phone] * Full Code (Latest Code Status on File) Date Activated Date Inactivated Comments 08/29/2020 11:50 AM 08/29/2020 9:03 PM Care Teams Customer Advocate Relationship Specialty Start Date End Date James Peters MD [address] [place] [address] [address] PCP - General 06/07/17
--- OUTSIDE RECORDS SUMMARY | 2024-11-02 00:30 | XMS_ITS | Clinical Summary ---
Author Organization [facility] Address [address] [facility] [place] [address] Care Team Providers Care Batterboard Setter Name Role Phone James Peters MD Primary Care Provider [phone] James Peters MD Unavailable [phone] Source Comments [facility],non-[facility] Affiliates and Associated Physician Practices is amultiple site organization consisting of ambulatory clinics and hospital sitesin [place], [place], [place] and [place]. This disclosure is being madepursuant to the Care Everywhere program and may not contain all information available regarding this patient. Last updated 18.[facility] Allergies Active Allergy Reactions Criticality Noted Date Comments Alteplase Angioedema High 09/04/2020 Medications * Be aware that medications may not be up to date on this document. Alwaysverify current medications with the patient. Medication Sig Dispensed Refills Start Date End Date Status atorvastatin (LIPITOR) 40 MG tablet Take 1 (one) tablet by mouth at bedtime 30 tablet 3 09/06/2020 Active Cholecalciferol (VITAMIN D3 PO) Take 1,250 mcg by mouth once daily Active Multiple Vitamins-Minerals (PRESERVISION AREDS 2 PO) Take 1 tablet by mouth 2 times daily Active lisinopril (Prinivil; Zestril) 10 MG tablet Take 1 (one) tablet by mouth once daily 05/08/2023 Active amitriptyline (Elavil) 25 MG tabletIndications: Thalamic pain syndrome TAKE 1 TABLET EVERY EVENING 30 tablet 08/20/2023 Active Additional Information Patient taking differently:25 mg EVERY EVENING,Taking a half tab., Reported on 09/19/2023 Eliquis 5 MG tabletIndications: PFO (patent foramen ovale) (HCC) TAKE 1 TABLET TWICE DAILY 180 tablet 3 01/31/2024 Active propranolol (Inderal) 20 MG tabletIndications: tremor Take 1 (one) tablet by mouth 2 times daily Reasons: tremor 90 tablet 5 02/13/2024 Active Active Problems Problem Noted Date Diagnosed Date History of CVA (cerebrovascular accident) 2024 Essential hypertension 06/25/2023 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 PFO (patent foramen ovale) 12/08/2020 Upper extremity weakness 09/04/2020 Weakness of right lower extremity 09/04/2020 Hyperparathyroidism 08/29/2020 Encounters Date Type Department Care Team Description 09/24/2024 10:30 AM KILN PLACER Office Visit [facility] - Neurology [address] [facility] [place] [phone] Clint Bridges MD History of CVA (cerebrovascular accident) (Primary Dx); Thalamic pain syndrome 09/24/2024 Travel 08/17/2024 3:00 PM KILN PLACER Office Visit [facility] - Cardiology [address] [facility], [facility] [address] [place] [phone] Cici Gonzalez MD PFO (patent foramen ovale) (Primary Dx); Essential hypertension; History of CVA (cerebrovascular accident) 08/17/2024 Travel from Last 3 Months Immunizations Name Administration Dates Next Due INFLUENZA VACCINE 06/07/2016 INFLUENZA VACCINE, HIGH-DOSE , QUADR. (FLUZONE HIGH-DOSE QUADRIVALENT; 65Y+), 0.7 ML (HD-IIV4) 09/06/2020,04/06/2020 INFLUENZA VACCINE, QUADR. (F LUZONE; FLULAVAL; FLUARIX; AFLURIA QUADRIVALENT; 6MO+), 0.5 ML (IIV4) 07/09/2018 ZOSTER VACCINE, LIVE 06/15/2015 Social History Tobacco Use Types Packs/Day Years Used Date Smoking Tobacco: Never Smokeless Tobacco: Never Tobacco Cessation:Counseling Given: Not Answered Alcohol Use Standard Drinks/Week Comments Yes 2 (1 standard drink = 0.6 oz pur e alcohol) socially AUDIT-C Answer Date Recorded Q1: How often do you have a drink containing alc ohol? 2-4 times a month 09/04/2020 Q2: How many drinks containi ng alcohol do you have on a typical day when you are drinking? 1 or 2 09/04/2020 Q3: How often do you have si x or more drinks on one occasion? Weekly 09/04/2020 Sex and Gender Information Value Date Recorded Sex Assigned at Not on file Gender Identity Not on file Sexual Orientation Not on file Last Filed Vital Signs Vital Sign Reading Time Taken Comments Blood Pressure 151/82 09/24/2024 10:54 AM KILN PLACER Pulse 50 09/24/2024 10:54 AM KILN PLACER Temperature 36.6 C (97.9 F) 09/13/2022 9:08 AM KILN PLACER Respiratory Rate 16 09/24/2024 10:54 AM KILN PLACER Oxygen Saturation 98% 08/17/2024 3:02 PM KILN PLACER Inhaled Oxygen Concentration - - Weight 73.9 kg (163 lb) 09/24/2024 10:54 AM KILN PLACER Height 160 cm (5' 3 ) 08/17/2024 3:02 PM KILN PLACER Body Mass Index 28.87 08/17/2024 3:02 PM KILN PLACER Plan of Treatment Upcoming Encounters Date Type Department Care Team (Late st Contact Info) Description 02/03/2025 10:00 AM CDT [facility] - [facility]rology [address] [facility] [place] [phone] Cristi Redd, INSTRUCTIONAL SUPPORT TECHNICIAN-BACTERIOLOGIST [place] [address] DIV [place] [phone] 08/16/2025 9:40 AM KILN PLACER Office Visit [facility] - Cardiology [address] [facility], [facility] [address] [place] [phone] Magdalena Diallo MD [address] [facility] DIV OF CARDIOLOGY [address] [place] [address] Health Maintenance Due Date Last Done Comments BONE DENSITY TESTING 1950 MEDICARE AWV 12 MONTHS 1950 HEPATITIS C SCREENING 08/19/1966 DTAP/TDAP/TD VACCINES (1 - Tdap) 1967 PNEUMOCOCCAL VACCINE 50+ (1 of 1 - PCV) 1998 ZOSTER VACCINE (2 of 3) 08/10/2015 06/15/2015 Respiratory Syncytial Virus (RSV) Vaccine Pt: or over 60 yrs (1 - 1-dose 75+ series) 2023 COVID-19 VACCINE (3 - season) 2024 10/08/2020, 09/10/2020 DEPRESSION SCREENING 07/29/2024 INFLUENZA VACCINE (Season Ended) 2025 09/06/2020, 04/06/2020, 07/09/2018, Additional history exists HEPATITIS B VACCINE Aged Out No longe r eligible based on patient's age to complete this topic HIB VACCINE Aged Out No longer eligi ble based on patient's age to complete this topic HPV VACCINE Aged Out No longer eligi ble based on patient's age to complete this topic MENINGOCOCCAL (Group B) VACCINE SHARED DECISION-MAKING Aged Out No longer eligible based on patient's age to complete this topic MENINGOCOCCAL GROUPS A/C/Y/W VACCINE Aged Out No longer eligible based on patient's age to complete this topic Medical Devices Implanted Type Area Furniture Restorer Device Identifier Shelf Expiration Date Model / Serial / Lot Sys Crd Mntr Rvl Linq [employer] Ins - Srla [id number] Implanted:Qty: 1 on 09/06/2020 at [facility] Chest [employer] 06/11/2021 LINQSYS / [id number] / Description:[employer] [facility] Cindy morenocarlos SN: [id number] Advance Directives * Full Code (Latest Code Status on File) Date Activated Date Inactivated Comments 09/04/2020 11:29 AM 09/07/2020 5:42 PM * Full Code Date Activated Date Inactivated Comments 09/04/2020 11:19 AM 09/04/2020 11:29 AM Care Teams Batterboard Setter Relationship Specialty Start Date End Date James Peters MD [address] [place] [phone] PCP - General Family Medicine 09/04/20 James Peters MD [address] [place] [phone] 09/04/20
--- OUTSIDE RECORDS SUMMARY | 2024-11-02 00:30 | XMS_ITS | Clinical Summary ---
Author Organization [facility] Address [address], [address] [address] Phone Care Team Providers Care Train Engineer Name Role Phone James Peters MD Primary Care Provider [phone] Allergies No known active allergies Medications lisinopril (PRINIVIL, ZESTRIL) 10 MG Tablet Take 10 mg by mouth daily. 10/28/2017 Active Aspirin 81 MG Tablet Take 81 mg by mouth daily. Active Calcium Acetate, Phos Binder, (CALCIUM ACETATE PO) Take by mouth. Active omeprazole (PriLOSEC) 40 MG CAPSULE DELAYED RELEASE TAKE 1 CAPSULE EVERY DAY 90 Cap 3 08/16/2020 Active Active Problems No known active problems Family History Medical History Relation Name Comments Alzheimer's Disease Brother Asthma Brother Other-comment Father brain tumor Cirrhosis Mother related to medi cation Colon Cancer Sister Relation Name Status Comments Brother Father Mother Sister Social History Tobacco Use Types Packs/Day Years Used Date Smoking Tobacco: Never Smokeless Tobacco: Never Alcohol Use Standard Drinks/Week Comments Yes 4 (1 standard drink = 0.6 oz pur e alcohol) Comments No Sex and Gender Information Value Date Recorded Sex Assigned at Not on file Legal Sex Female 8:35 PM CDT Gender Identity Not on file Sexual Orientation Not on file Last Filed Vital Signs Vital Sign Reading Time Taken Comments Blood Pressure 152/90 01/20/2019 1:48 PM CDT Pulse 83 01/20/2019 1:48 PM CDT Temperature 36.9 C (98.5 F) 01/20/2019 1:48 PM CDT Respiratory Rate 16 01/20/2019 1:48 PM CDT Oxygen Saturation 95% 01/20/2019 1:48 PM CDT Inhaled Oxygen Concentration - - Weight 79.2 kg (174 lb 9.6 oz) 01/20/2019 1:48 P M CDT Height 162.6 cm (5' 4 ) 01/20/2019 1:48 PM CDT Body Mass Index 29.97 01/20/2019 1:48 PM CDT Plan of Treatment Health Maintenance Due Date Last Done Comments DEXA Bone Density 1950 Hepatitis C Virus (HCV) Screening 1950 TdaP Immunization 1950 Pneumococcal Immunization (5 0+ years) (1 of 1 - PCV) 1998 Zoster Immunization (2 of 3) 08/10/2015 06/15/2015 Respiratory Syncytial Virus (RSV) Immunization (Adult) (1 - 1-dose 75+ series) 2023 Influenza Immunization (#1) 03/29/202406/28, 06/07/2016 SARS-COV-2 Immunization ( season) 2024 11/03/2021, 10/08/2020, 09/10/2020 Colonoscopy High Risk Discontinued 07/17/2018 Colonoscopy Discontinued 07/17/2018 Colorectal Cancer Screening Discontinued Cologuard Discontinued Hepatitis B Immunization Aged Out No longer eligible based on patient's age to complete this topic Immunochemical Fecal Occult Blood Discontinued Meningococcal Immunization (ACWY) Aged Out No longer eligible based on patient's age to complete this topic Rotavirus Immunization Aged Out No lo nger eligible based on patient's age to complete this topic Procedures Procedure Name Priority Date/Time Associated Diagnosis Comments COLONOSCOPY Routine 07/17/2018 from Last 3 Months or Most Recently Relevant to Health Maintenance Results * COLONOSCOPY (07/17/2018) Davion Mejia DO PROCEDURE/MINOR SURGICAL ORDERA BLES Final Result from Last 3 Months or Most Recently Relevant to Health Maintenance Insurance MEDICARE [facility] Care Teams Train Engineer Relationship Specialty Start Date End Date James Peters MD [address] [place] [address] [address] [place] [address] PCP - General Family Medicine 03/04/18
--- OUTSIDE RECORDS SUMMARY | 2024-11-02 00:30 | XMS_ITS | Clinical Summary ---
Author Organization [facility] [address] Address [address] [place] [address] Care Team Providers Care Ammonia Box Operator Name Role Phone James Peters MD Primary Care Provider [phone] Allergies Active Allergy Reactions Criticality Noted Date [...] Problem Noted Date Diagnosed Date Hyperparathyroidism 08/29/2020 Surgical History Surgery Date Site/Laterality Comments TONSILLECTOMY 07/29/1953 - 07/28/1954 SECTION 07/29/1984 - 07/28/1985 EYE SURGERY 07/29/2017 - 07/28/2018 Eyelids FOOT SURGERY 07/29/2013 - 07/28/2014 Bunion OTHER SURGICAL HISTORY 07/29/2014 - 07/28/2015 macular pucker EYE SURGERY 07/29/2015 - 07/28/2016 cataract HERNIA REPAIR Medical History Medical History Date Comments Hypertension Gastroesophageal reflux disease Family History Medical History Relation Name Comments Cirrhosis Maternal Grandfather Cirrhosis Mother Anesthesia problems Neg Hx Relation Name Status Comments Maternal Grandfather (Age 50s) Mother (Age 84/85) Social History Tobacco Use Types Packs/Day Years Used Date Smoking Tobacco: Never Smokeless Tobacco: Never Alcohol Use Standard Drinks/Week Comments Yes 1 (1 standard drink = 0.6 oz pur e alcohol) Comments No Sex and Gender Information Value Date Recorded Sex Assigned at Not on file Legal Sex Female 11:40 PM BRANCH ASSOCIATE Gender Identity Not on file Sexual Orientation Not on file Obstetrics History Last Filed Vital Signs Vital Sign Reading Time Taken Comments Blood Pressure 159/94 03/15/2021 10:49 AM CDT Pulse 94 03/15/2021 10:49 AM CDT Temperature 36.5 C (97.7 F) 03/15/2021 10:49 AM CDT Respiratory Rate 18 08/29/2020 2:00 PM BRANCH ASSOCIATE Oxygen Saturation 100% 03/15/2021 10:49 AM CDT Inhaled Oxygen Concentration - - Weight 70 kg (154 lb 6.4 oz) 03/15/2021 10:49 AM CDT Height 162.6 cm (5' 4.02 ) 09/14/2020 10:[address] Body Mass Index 26.49 09/14/2020 10:54 AM BRANCH ASSOCIATE Plan of Treatment Health Maintenance Due Date Last Done Comments Depression Screening 1950 Hepatitis C Screening 1950 Osteoporosis Screening-Bone Density Scan 1948 DTaP/Tdap/Td Vaccine (1 - Tdap) 1959 Hepatitis B Screening 1966 Pneumococcal vaccine 65+ (1 of 1 - PCV) 1998 Well Visit 65+ 2013 Zoster Vaccine (2 of 3) 08/10/2015 06/15/2015 Fall Risk Assessment 08/29/2021 08/29/2020 Influenza Vaccine (#1) 2024 , 07/09/2018, 06/07/2016 Breast Cancer Screening-Mammogram Discontinued 03/05/2024, 09/28/2021, 09/08/2019, Additional history exists Procedures Procedure Name Priority Date/Time Associated Diagnosis [...] LEFT breast was performed by a trained fire lieutenant and by Dr. Bobby. BREAST PARENCHYMAL COMPOSITION: [...] LEFT breast was performed by a trained fire lieutenant and by Dr. Bobby. BREAST PARENCHYMAL COMPOSITION: [...] signed by: Gabi Jain M.D. [place] CUT OFF [employer] IMG MAMMO PROCEDURES Jacki l Result from Last 3 Months or Most Recently Relevant to Health Maintenance Insurance MEDICARE [employer] CHOICE MEDICARE PPO [employer] CLAIMS OFFICE MEDICARE [employer] CLAIMS OFFICE MEDICARE [employer] CLAIMS OFFICE Advance Directives For more information, please contact: [phone] * Full Code (Latest Code Status on File) Date Activated Date Inactivated Comments 08/29/2020 11:50 AM 08/29/2020 9:03 PM Care Teams Ammonia Box Operator Relationship Specialty Start Date End Date James Peters MD [address] [place] [address] [place] [address] PCP - General 06/07/17
--- OUTSIDE RECORDS SUMMARY | 2024-11-02 00:30 | XMS_ITS | Clinical Summary ---
Author Organization [facility] Address Count includes the [facility] [place] [address] Care Team Providers Care Refuse Driver Name Role Phone James Peters MD Primary Care Provider [phone] Allergies Active Allergy Reactions Criticality Noted Date Comments Alteplase Angioedema High 09/04/2020 Medications amitriptyline (ELAVIL) 25 MG tablet 4 Active atorvastatin (LIPITOR) 40 MG tablet 4 Active ELIQUIS 5 MG tablet Take 1 tablet (5 mg total) by mouth 2 (two) times daily. 4 Active lisinopril (PRINIVIL) 10 MG tablet Take 1 tablet (10 mg total) by mouth daily. 3 Active propranolol (INDERAL) 20 MG tablet Take 1 tablet (20 mg total) by mouth 2 (two) times daily. 4 Active mupirocin (BACTROBAN) 2 % ointment Apply topically 2 (two) times daily. 4 Active Vitamin D3 125 mcg Tab Take 1 tablet (125 mcg total) by mouth daily. Active Active Problems No known active problems Social History Tobacco Use Types Packs/Day Years Used Date Smoking Tobacco: Never Smokeless Tobacco: Never Tobacco Cessation:Counseling Given: No Comments:N/a Comments Unknown Sex and Gender Information Value Date Recorded Sex Assigned at Not on file Legal Sex Female 11:16 AM CDT Gender Identity Not on file Sexual Orientation Not on file Last Filed Vital Signs Vital Sign Reading Time Taken Comments Blood Pressure 98/63 02/24/2024 1:02 PM CDT Pulse 83 02/24/2024 1:02 PM CDT Temperature 36.4 C (97.5 F) 02/24/2024 1:02 PM CDT Respiratory Rate - - Oxygen Saturation - - Inhaled Oxygen Concentration - - Weight 75.6 kg (166 lb 9.6 oz) 02/24/2024 1:02 P M CDT Height - - Body Mass Index - - Plan of Treatment Health Maintenance Due Date Last Done Comments Hepatitis C 1968 Annual Medicare Wellness Visit 2013 Dexa Scan (General) 2013 Pneumococcal Vaccine: 65+ Years (1 of 1 - PCV) 2013 Zoster Vaccines (2 of 3) 08/10/2015 06/15/2015 RSV Immunization or 60+ Years (1 - 1-dose 75+ series) 2023 COVID-19 Vaccine (4 - 2023-2 5 season) 2024 11/03/2021, 10/08/2020, 09/10/2020 PHQ-2 (Physician Native) 07/29/2024 DTaP, Tdap and Td Vaccines ( 2 - Td or Tdap) 03/19/2032 03/19/2022 Meningococcal B Vaccine Aged Out No l onger eligible based on patient's age to complete this topic Meningococcal Vaccine Aged Out No rafita priscilla eligible based on patient's age to complete this topic RSV Immunizations Under 20 Months Aged Out No longer eligible b ased on patient's age to complete this topic Insurance MEDICARE [facility] [employer] Care Teams Refuse Driver Relationship Specialty Start Date End Date James Peters MD [facility] [address] [address] PCP - General FAMILY PRACTICE 01/22/24
[2024-11-02 11:15] VITALS: BP 169/79; PULSE 85; RESP 16; TEMP 36.3; O2SAT 99; BMI 28.8
--- NOTE | 2024-11-02 11:29 | WPDHPUPDATE1 ---
History and Physical Update Update Date/Time: 11/02/24 11:29 History and Physical has been reviewed, including an updated exam of the patient. There are NO changes in the patient's condition. Risks, benefits, and alternatives have been discussed and questions answered. Patient agrees to proceed with procedure.
--- NOTE | 2024-11-02 11:33 | WPDHPUPDATE1 ---
History and Physical Update Update Date/Time: 11/02/24 11:33 History and Physical has been reviewed, including an updated exam of the patient. There are NO changes in the patient's condition. Risks, benefits, and alternatives have been discussed and questions answered. Patient agrees to proceed with procedure.
[2024-11-02] MEDS: LACTATED RINGERS 1,000 ML 30 ML IV CONT (11:50)
--- NOTE | 2024-11-02 12:37 | P.PNAN_ITS ---
Anes - Initial Pre Proc Eval Procedure: Operation Date: 11/02/24 13:00 Proposed Procedures p Excision Umbilical Suture Granuloma - Ermias Serna DO Date/Time: 11/02/24 12:37 Surgeon: Ermias Serna DO Pre Op Diagnosis: suture granuloma Patient Data Age: 74 Gender: F Height: 1.6 m Weight: 73.7 kg Last Vital Signs Temp 97.4 F L 11/02/24 11:15 Pulse 85 11/02/24 11:15 Resp 16 11/02/24 11:15 BP 169/79 H 11/02/24 11:15 Pulse Ox 99 11/02/24 11:15 Allergies Allergy/AdvReac Type Severity Reaction Status Date / Time alteplase Allergy Severe Swelling Verified 11/02/24 11:13 of Lip/Tongue/Throat codeine AdvReac Intermediate INCREASED Verified 11/02/24 11:13 HEART RATE Home Medications ?Medication ?Instructions ?Recorded ?Confirmed ?Type vit C 250 mg-vit E 90 mg-zinc 40 1 tablet PO BID 02/03/21 10/23/24 History mg-copper 1 md-rxzrcm-tsiwrn capsule (PreserVision AREDS-2) cholecalciferol (vitamin D3) 125 125 mcg PO WEEKLY 08/31/21 11/02/24 History mcg (5,000 unit) tablet (Vitamin D3) apixaban 5 mg tablet (Eliquis) 5 mg PO BID 02/05/22 11/02/24 History atorvastatin 40 mg tablet 40 mg PO DAILY #90 tabs 07/30/24 11/02/24 Rx lisinopril 10 mg tablet See Rx Instructions .Route 08/04/24 11/02/24 Rx .COMPLEX #90 tabs amitriptyline 25 mg tablet 12.5 mg (1/2 x 25 mg) PO HS #90 08/27/24 11/02/24 Rx tabs Patient hx anesthesia problems: none Family hx anesthesia problems: none Results Review: All pre-operative results and documents have been reviewed as part of the pre- operative evaluation. [facility] Past Medical History Medical History CVA (cerebral vascular accident) PFO (patent foramen ovale) Osteopenia Obesity (BMI 30.0-34.9) Primary hyperparathyroidism Overweight (BMI 25.0-29.9) Unspecified vitamin D deficiency Barretts esophagus Macular degeneration Recurrent basal cell carcinoma Hallux valgus Basal cell carcinoma left cheek Macular pucker (~2014) Postmenopausal Osteopenia Colon polyp Esophageal hiatal hernia Surgical History Surgical History History of parathyroidectomy History of parathyroidectomy (~08/29/20) History of tonsillectomy (~1953) History of hernia repair (~2017) H/O section History of cataract extraction (~2015) Family History Family History Sibling Family history of mental disorder Family history of dementia, Onset Age: 50 Family history of Alzheimer's disease Father Family history of glaucoma Family history of malignant neoplasm Mother Family history of liver disease Family history of primary malignant neoplasm of liver Other Cerebrovascular accident Family history of kidney disease Social History Social History Smoking status: Never smoker Alcohol intake: current Drinks per week: 1 Substance use: never Substance use type: does not use Do You Feel Safe in your Home?: Yes Lack of Transportation: No Lack of Food: Never True Current Housing: I Have Housing Concerned About Future Housing: No Difficulty Paying Gas/Electric Bills: No Difficulty Paying for Meds: No Currently Unemployed: No Education: High School Diploma/GED Difficulty w/ Childcare or Family Care: No Living arrangements: with family Additional living arrangements comments: [place] Gender identity (if verbalized by the patient): Female Spiritual care concerns: No Anes - Eval Final PreProcedure Day of Procedure 11/02/24 12:37 Patient weight: overweight Lungs: normal air movement Airway: Mallampati scale class II Neurological: alert and oriented Last oral intake: >/= 8 hours ASA classification: III Emergent: no Anesthetic plan: proceed Anesthesia type and monitoring: general GIVS and standard monitoring Results Review: All pre-operative results and documents have been reviewed as part of the pre- operative evaluation. HTN, hyperlipidemia, hx of PFO s/p CVA 2020, only mild R UE weakness/fine motor deficits. Informed Consent: The patient's anesthetic plan and its attendant risks and benefits were discussed with the patient/family/POA. Questions were solicited and answers provided to the satisfaction of the patient/family/POA.
[2024-11-02] MEDS: ceFAZolin 2 GM/D5W 50 ML 2 GM/50 ML BAG IVPB (12:54)
[2024-11-02] MEDS: LIDO 1%/EPINEPHRINE 1:100,000 50 ML VIAL 10 ML INFILTRATE (13:06)
[2024-11-02 14:01] VITALS: BP 135/59; PULSE 78; RESP 14; O2SAT 98
--- NOTE | 2024-11-02 14:11 | W.PM.PROC2 ---
Procedure Note - Detailed Date of Procedure 11/02/24 Pre-op Diagnosis suture granuloma at umbilicus Post-op Diagnosis Same Procedure Performed Excision of suture granuloma of umbilicus within the abdominal fascia Surgeon Ermias Serna, DO Anesthesia MAC and Local (1% lidocaine with epinephrine) Indications This is a 74-year-old woman who presented with a painful nodule at her umbilicus that she had noticed over the past several months. She has a history in open incisional hernia repair with mesh about 7 years ago. On exam she was noted to have a painful area at the upper edge of her umbilical skin and there appeared to be some indurated skin in this region. This appeared likely to be related to a granuloma involving some of the prior suture placed for the hernia repair. Discussions were made with the patient about treatment options and decision was made to proceed with excision of umbilical suture granuloma. Findings Upon inspecting the subcutaneous space around the upper portion of the umbilical skin, there did appear to be some indurated scar tissue adherent to the dermis of the umbilicus. Just deep to this there also was evidence of 2 or 3 Ethibond sutures within the fascia just deep to the umbilical skin. The sutures along with some of the scar tissue were excised. No other significant abnormalities noted. The suture material and scar tissue was sent to the lab for pathology. Description of Procedure Procedure as well as risks, benefits, and alternatives were discussed with the patient. Written consent was obtained and placed in chart prior to procedure. Patient was brought back to surgical suite. She was placed supine on operating table. Time-out was done to confirm patient and procedure. IV sedation was then administered by the anesthesia department. Her abdomen was prepped and draped in sterile fashion using chlorhexidine prep. 1% lidocaine with epinephrine was infiltrated locally around the umbilical skin. A 3 cm transverse incision was made just superior to the umbilicus using a 15 blade scalpel. Electrocautery was used for hemostasis and for careful dissection through the subcutaneous tissue. The thickened area of umbilical skin was identified and there was some scar tissue tethering the umbilical skin at this location. Scar tissue was carefully excised from the umbilical skin and further dissection was carried out down to the level of the fascia. There were 3 Ethibond sutures that were identified near this area that were possibly causing the suture granuloma. The sutures were carefully excised using Metzenbaum scissors. The fascia appeared intact without any signs of recurrent hernia. No other significant abnormalities were noted. Hemostasis appeared adequate. The umbilical stalk was then reapproximated back down to the fascia using 3-0 Vicryl simple interrupted suture. The deep dermis was reapproximated using 3-0 Vicryl simple interrupted sutures. The skin was approximated using 4-0 Monocryl running subcuticular suture. Exofin glue was then applied on top. The patient was then awakened from anesthesia and transferred to recovery. Estimated Blood Loss 5 Pathology Yes (umbilical suture granuloma) Complications No immediate complications Condition Stable Disposition Same day [facility] Billing Surgery - Charge Forward: Surgery Billing
[2024-11-02 14:30] VITALS: BP 146/64; PULSE 72; O2SAT 92
[2024-11-02 15:00] VITALS: BP 153/80; PULSE 79
[2024-11-02 15:25] VITALS: BP 135/61; PULSE 77
== END 2024-11-02 15:35 | disposition home or self-care (01) ==
PROVIDERS: PCP Family Medicine; Visit Provider Surgery
PROC: (CPT 10120; principal; 2024-11-02 13:00)
DX: L92.3 Foreign body granuloma of the skin and subcutaneous tissue (principal); I10 Essential (primary) hypertension; E78.5 Hyperlipidemia, unspecified; E21.3 Hyperparathyroidism, unspecified; E55.9 Vitamin D deficiency, unspecified; Z85.828 Personal history of other malignant neoplasm of skin; M85.88 Other specified disorders of bone density and structure, other site; H35.30 Unspecified macular degeneration; Z79.01 Long term (current) use of anticoagulants; Z79.02 Long term (current) use of antithrombotics/antiplatelets; Z98.890 Other specified postprocedural states; Z86.0100 Personal history of colon polyps, unspecified; Z87.19 Personal history of other diseases of the digestive system; Z86.79 Personal history of other diseases of the circulatory system; Z87.74 Personal history of (corrected) congenital malformations of heart and circulatory system; Z80.0 Family history of malignant neoplasm of digestive organs; Z82.49 Family history of ischemic heart disease and other diseases of the circulatory system
CPT/HCPCS: 10120; 88304; A9270; J0690; J1100; J2003; J2004; J2405; J2704; J3010; J7120